=== PATIENT | male | born 1980 | race Caucasian/White ===

== ENCOUNTER 2021-05-02 20:38 | Inpatient (IN) | payer SELFPAY ==
--- NOTE | 2021-05-02 21:02 | ED_ITS ---
HPI - General Adult General: Chief complaint: Psychiatric Symptoms Stated complaint: SI/96 HOUR Time Seen by Provider: 05/02/21 20:58 History of Present Illness: HPI narrative: HPI: [40]yo patient w/ hx of depression BIBA for belligerence and acute psychosis. Patient is following commands but reports visions from God and telling police officers that he is the devil. for On arrival, the patient is AAOx3 and cooperative with my evaluation. No focal complaints of chest pain, shortness of breath, palpitations, N/V, focal GI/ complaints. Patient also endorses suicidal ideations. No complaints of hallucinations. Onset: chronic Duration: ongoing Location: home Severity: severe Review of Systems Narrative: Constitutional: No fever, no chills. HEENT: No vision changes CV: No chest pain, no palpitations PULM: No productive cough, no dyspnea. GI: No abdominal pain, no N/V/D. : No dysuria MSKEL: No muscle pain SKIN: No new rashes, no lesions. NEURO: No headache, no focal weakness. HEME: No visible bruises PSYCH: +psychosis, +SI Physical Exam Narrative: EXAM NARRATIVE: Head: Atraumatic Eyes: PERRL, conjunctiva without injection, eyes tracking ENT: Mucous membrane moist NECK: Supple without lymphadenopathy LUNGS: LCTAB CV: RRR ABDOMEN: Soft, nontender EXTREMITY: Normal ROM SKIN: No rash or erythema NEURO: Awake and alert. No focal weakness PSYCH: Cooperative mood and affect. +mildly agitated Course Vital Signs: Vital signs: Vital Signs Temperature 98.0 F 05/04/21 06:00 Pulse Rate 67 05/04/21 06:00 Respiratory Rate 20 H 05/04/21 06:00 Blood Pressure 117/81 05/04/21 06:00 Pulse Oximetry 95 05/04/21 06:00 MDM - General Adult MDM Narrative: Medical decision making narrative: [40]yo patient w/ no known PMH presenting for acute psychosis. HDS, exam within normal limit Thoughts are linear and organized, +visual hallucinations and auditory hallucinations. +SI Clinically the patient displays no overt toxidrome; they are well appearing, with low suspicion for toxic ingestion given history and exam. Symptoms unlikely 2/2 anemia, hypothyroidism, infection, or ICH. Workup: CBC, CMP, Lipase, salicylate/tylenol, UDS Lab findings: wnl, +amphetamine in urine [10:06] On reassessment, labs and workup wnl. Patient is hemodynamically stable with no acute medical complaints. Case discussed with psychiatric provider Dr. Lovelace at [facility] psych inpatient with recommendation for admission Disposition: Psych Lab Data: Labs: Lab Results 05/02/21 05/02/21 05/02/21 Range/Units 21:24 21:24 21:37 WBC 11.2 H (4.0-10.0) 10^3/ uL RBC 5.47 H (4.1-5.3) 10^6/u L Hgb 15.8 (11.7-16.6) g/dL Hct 46.6 (42.0-52.0) % MCV 85.2 (80-94) fl MCH 28.9 (28.0-34.0) pg MCHC 33.9 (30.0-36.0) g/dL RDW 12.9 (12.1-15.1) % Plt Count 297 (130-400) 10^3/c mm MPV 10.2 (7.4-10.4) fL Neut % (Auto) 54.4 % Lymph % (Auto) 37.2 % Bath % (Auto) 5.1 % Eos % (Auto) 1.9 % Baso % (Auto) 1.0 % Neut # (Auto) 6.08 (1.8-7.7) 10^3/u L Lymph # (Auto) 4.2 (0.8-4.8) 10^3/u L Bath # (Auto) 0.6 (0.2-0.9) 10^3/u L Eos # (Auto) 0.2 (0.0-0.8) 10^3/u L Baso # (Auto) 0.1 (0.0-0.1) 10^3/u L Nucleated RBC % (a uto) 0 % Nucleated RBCs # 0.0 /100WBC Sodium 138 (136-145) mmol/L Potassium 3.8 (3.5-5.1) mmol/L Chloride 101 (98-107) mmol/L Carbon Dioxide 24 (22-29) mmol/L Anion Gap 16.8 (5-19) BUN 14 (6-20) mg/dL Creatinine 0.8 (0.7-1.2) mg/dL GFR Calculation 107.6 (90-130) mL/min Glucose 95 (65-115) mg/dL Calculated Osmolal ity 286 (285-295) mOsm/k g Calcium 9.4 (8.5-10.5) mg/dL Salicylates 1.1 L (3-10) mg/dL Urine Opiates Scre en Negative (Negative) ng/mL Acetaminophen < 5.0 L (10-30) ug/mL Ur Barbiturates Sc reen Negative (Negative) ng/mL Ur Phencyclidine S crn Negative (Negative) ng/mL Ur Amphetamines Sc reen Negative (Negative) ng/mL U Benzodiazepines Scrn Negative (Negative) ng/mL Urine Cocaine Scre en Negative (Negative) ng/mL U Marijuana (THC) Screen Negative (Negative) ng/mL Discharge Plan Discharge Patient Disposition: Admitted As Inpatient Admit Provider: Santiago Lovelace Clinical Impression: Psychosis, Suicide ideation Condition: Stable 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
[2021-05-02 21:07] VITALS: BMI 22.3
[2021-05-02 21:32] LABS: Basophils # 0.1 10^3/uL (0.0-0.1); Eosinophils # 0.2 10^3/uL (0.0-0.8); Eosinophils % 1.9 %; Hematocrit 46.6 % (42.0-52.0); Hemoglobin 15.8 g/dL (11.7-16.6); Lymphocytes # 4.2 10^3/uL (0.8-4.8); Lymphocytes % 37.2 %; Mean Corpuscular HGB Conc 33.9 g/dL (30.0-36.0); Mean Corpuscular Hemoglobin 28.9 pg (28.0-34.0); Mean Corpuscular Volume 85.2 fl (80-94); Mean Platelet Volume 10.2 fL (7.4-10.4); Monocytes # 0.6 10^3/uL (0.2-0.9); Monocytes % 5.1 %; Neutrophils # 6.08 10^3/uL (1.8-7.7); Neutrophils % 54.4 %; Nucleated Red Blood Cells % 0 %; Platelet Count 297 10^3/cmm (130-400); Red Blood Count 5.47 10^6/uL (4.1-5.3); Red Cell Distribution Width 12.9 % (12.1-15.1); White Blood Count 11.2 10^3/uL (4.0-10.0)
[2021-05-02 21:41] VITALS: BP 126/64; PULSE 87; RESP 14; TEMP 36.9; O2SAT 99
[2021-05-02 21:49] LABS: Anion Gap 16.8 (5-19); Blood Urea Nitrogen 14 mg/dL (6-20); Calcium 9.4 mg/dL (8.5-10.5); Carbon Dioxide 24 mmol/L (22-29); Chloride 101 mmol/L (98-107); Glomerular Filtration Rate 107.6 mL/min (90-130); Glucose 95 mg/dL (65-115); Osmolality Calculated 286 mOsm/kg (285-295); Potassium 3.8 mmol/L (3.5-5.1); Salicylate 1.1 mg/dL (3-10); Sodium 138 mmol/L (136-145)
[2021-05-02 21:50] LABS: Acetaminophen < 5.0 ug/mL (10-30)
[2021-05-02 22:06] LABS: Amphetamines Screen Urine Negative (Negative); Barbiturates Screen Urine Negative (Negative); Benzodiazepines Screen Urine Negative (Negative); Cocaine Screen Urine Negative (Negative); Opiate Screen Urine Negative (Negative); PCP Screen Urine Negative (Negative); THC Screen Urine Negative (Negative)
[2021-05-03 01:13] VITALS: BP 126/64; BP 149/95; PULSE 71; PULSE 87; RESP 14; RESP 18; TEMP 36.8; TEMP 36.9; O2SAT 98; O2SAT 99
[2021-05-03] MEDS: trazodone 50 mg Tablet PO (01:30)
[2021-05-03] MEDS: hyDROXYzine 25 mg Capsule 50 MG PO (01:30)
--- NOTE | 2021-05-03 01:30 | PC.NURSE ---
pt requesting sleep and anxiety meds. Trazodone 50mg po for sleep and vistaril 50mg po given.
--- NOTE | 2021-05-03 02:15 | PC.NURSE ---
pt resting with both eyes closed
[2021-05-03 12:52] VITALS: BP 146/75; PULSE 99; RESP 17; TEMP 36.9; O2SAT 99
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
[2021-05-03] MEDS: haloperidol 5 mg Tablet PO (18:33)
--- NOTE | 2021-05-03 18:33 | PC.NURSE ---
PRN HALDOL 5 MG GIVEN PO PER PT C/O AGITATION. PT VERY UPSET HE HASN'T SPOKEN TO PHYSICIAN YET TODAY, STATED I TAKE HALDOL 10 MG ONCE A DAY, I HAVEN'T HAD IT ALL DAY! PT THREATENING TO NOT BE POLITE ANYMORE. WILL CONT TO MONITOR
[2021-05-03 20:19] VITALS: BP 121/87; PULSE 75; RESP 20; TEMP 37; O2SAT 98
[2021-05-03] MEDS: haloperidol 5 mg Tablet 10 MG PO (21:14)
[2021-05-04 06:00] VITALS: BP 117/81; PULSE 67; RESP 20; TEMP 36.7; O2SAT 95
[2021-05-04] MEDS: haloperidol 5 mg Tablet 10 MG PO (08:47)
[2021-05-04] MEDS: escitalopram 10 mg Tablet PO (12:56)
[2021-05-04] MEDS: nicotine 2 mg Gum BUCCAL (12:56)
[2021-05-04 14:00] VITALS: BP 111/69; PULSE 82; RESP 16; TEMP 36.8; O2SAT 98
--- NOTE | 2021-05-04 16:04 | P.PN_ITS ---
Subjective NPU Subjective: Interval history: Stanley presents today not having had his Lexapro so we corrected that. He reports that overall not being out on his own feeling unsafe has helped but he is still feeling depression and hoping that the medication will make a difference. He reports he is eating okay and sleep is still difficult. He was very appreciative of the assistance he got thus far. Staff denied any significant issues. Mental Status Exam MSE Comments: This is a well-nourished, well-developed, white male, with hospital scrubs on with adequate grooming, and limited but improving eye contact. No abnormal movements except for psychomotor retardation. Cooperative with exam in mild distress. Speech was decreased rate and volume. Mood described as still depressed; affect congruent. Thought process, organized. Thought content: patient denied any suicidal or homicidal ideation. Currently he did endorse being paranoid all the time. He reports that he does have auditory and visual hallucinations sometimes. Attention, concentration, and memory appear intact but were not formally tested. He is alert and oriented times three. Insight and judgment are fair, impulse control limited. Vitals/I&O/Wt Last Vital Signs Temp 98.2 F 05/04/21 22:00 Pulse 82 05/04/21 22:00 Resp 16 05/04/21 22:00 BP 111/69 05/04/21 22:00 Pulse Ox 98 05/04/21 22:00 Data NPU : 05/02/21 21:24 05/02/21 21:24 A&P Additional A&P Information (1) Psychosis: (2) Schizoaffective disorder, depressive type: (3) Suicidal thoughts: Additional A&P Information This is a 40-year-old, white male, with a long history of addiction and mental health challenges, who presents with ongoing paranoia, genetic loading for mental health and addiction issues with a family history of suicidality, who identifies significant depression and is open to medication trail and connection with treatment providers. RECOMMENDATION AND PLAN: 1. Continue current medication except: Initiate Lexapro 10 mg po qam. 2. Encourage individual, group, and milieu therapy. 3. Continue q-15 minute checks for safety. Involuntary Hold Information 96 Hour Hold: 96 Hour Involuntary Admission: Yes 96 Hour Hold Ending Date: 05/07/21 96 Hour Hold Ending Time: 00:01 Attestations NPU Medical Necessity Statement*: Inpatient hospitalization is medically necessary and the clinically appropriate intervention, at this time. We will monitor medications and make changes as indicated. Likely length of stay is 2-4 days. 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
[2021-05-04] MEDS: trazodone 50 mg Tablet PO (21:53)
[2021-05-04] MEDS: hyDROXYzine 25 mg Capsule 50 MG PO (21:53)
[2021-05-04 22:00] VITALS: BP 111/69; PULSE 82; RESP 16; TEMP 36.8; O2SAT 98
--- NOTE | 2021-05-04 22:00 | PC.NURSE ---
PT REQUESTED SLEEP AND ANXIETY MEDS, TRAZODONE 50MG PO FOR SLEEP AND VISTARIL 50MG PO FOR ANXIETY GIVEN.
[2021-05-05 06:00] VITALS: BP 111/69; PULSE 82; RESP 16; TEMP 36.8; O2SAT 98
[2021-05-05] MEDS: escitalopram 10 mg Tablet PO (09:05)
[2021-05-05] MEDS: haloperidol 5 mg Tablet 10 MG PO (09:05)
[2021-05-05 13:50] VITALS: BP 133/81; PULSE 73; RESP 20; TEMP 36.6; O2SAT 97
--- NOTE | 2021-05-05 18:15 | P.PN_ITS ---
Subjective NPU Subjective: Interval history: Patient presents today reporting that he is doing better in his estimation with the Lexapro on board. He reports he is having a decrease in his depression and he is feeling more energetic and more positive. We discussed continuing to observe him on the medication and to identify possible discharge options. He reported that the darkness he had desc ribed before is certainly moving away. We discussed his a 96-hour hold and the likelihood of discharge in the next 48 hours. Mental Status Exam MSE Comments: This is a well-nourished, well-developed, white male, with hospital scrubs on with adequate grooming and improving eye contact. No abnormal movements except for a somewhat stiff and robotic motion. Cooperative with exam in mild distress. Speech was more normal rate and volume. Mood described as feeling better; affect congruent. Thought process, organized. Thought content: patient denied any suicidal or homicidal ideation. Currently he did endorse being paranoid all the time. He reports that he does have auditory and visual hallucinations sometimes. Attention, concentration, and memory appear intact but were not formally tested. He is alert and oriented times three. Insight and judgment are fair, impulse control limited. Vitals/I&O/Wt Last Vital Signs Temp 98.4 F 05/05/21 20:50 Pulse 75 05/05/21 20:50 Resp 19 H 05/05/21 20:50 BP 132/85 05/05/21 20:50 Pulse Ox 98 05/05/21 20:50 Data NPU : 05/02/21 21:24 05/02/21 21:24 A&P Additional A&P Information (1) Psychosis: (2) Schizoaffective disorder, depressive type: (3) Suicidal thoughts: Additional A&P Information This is a 40-year-old, white male, with a long history of addiction and mental health challenges, who presents with ongoing paranoia, genetic loading for mental health and addiction issues with a family history of suicidality, who identifies significant depression and is open to medication trail and connection with treatment providers. RECOMMENDATION AND PLAN: 1. Continue current medication except: Initiate Lexapro 10 mg po qam. 2. Encourage individual, group, and milieu therapy. 3. Continue q-15 minute checks for safety. Involuntary Hold Information 96 Hour Hold: 96 Hour Involuntary Admission: Yes 96 Hour Hold Ending Date: 05/07/21 96 Hour Hold Ending Time: 00:01 Attestations NPU Medical Necessity Statement*: Inpatient hospitalization is medically necessary and the clinically appropriate intervention, at this time. We will monitor medications and make changes as indicated. Likely length of stay is 1-3 days. 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
[2021-05-05 20:50] VITALS: BP 132/85; PULSE 75; RESP 19; TEMP 36.9; O2SAT 98
[2021-05-05] MEDS: trazodone 50 mg Tablet PO (21:35)
[2021-05-05] MEDS: hyDROXYzine 25 mg Capsule 50 MG PO (21:35)
[2021-05-06 06:00] VITALS: BP 128/74; PULSE 79; RESP 18; TEMP 37.1; O2SAT 95
[2021-05-06] MEDS: hyDROXYzine 25 mg Capsule 50 MG PO ×2 (06:50→21:40)
[2021-05-06] MEDS: haloperidol 5 mg Tablet 10 MG PO (08:11)
[2021-05-06] MEDS: escitalopram 10 mg Tablet PO (08:11)
--- NOTE | 2021-05-06 12:22 | P.PN_ITS ---
Subjective NPU Subjective: Interval history: Stanley continues to show slow improvement per staff though he has had some significant outbursts especially when speaking to mom. Was problematic because with sister saying he cannot return mom is one of his main options. He reported that whenever he is anything that she can understand him or hear him and that's very frustrating which is why he was yelling earlier. He reports that his depression is improving and that he is working with the treatment team for discharge planning next 48 hours or so. He did sign in voluntarily so is 96-hour hold has ended and he is engaging by choice. Mental Status Exam MSE Comments: This is a well-nourished, well-developed, white male, with hospital scrubs on with adequate grooming and improving eye contact. No abnormal movements except for a somewhat stiff and robotic motion. Cooperative with exam in no acute distress, but he has had moments of extreme distress today. Speech was more normal rate and volume. Mood described as feeling better; affect congruent. Thought process, organized. Thought content: patient denied any suicidal or homicidal ideation. Currently he did endorse being paranoid all the time. He reports that he does have auditory and visual hallucinations sometimes. Attention, concentration, and memory appear intact but were not formally tested. He is alert and oriented times three. Insight and judgment are limited, impulse control limited. Vitals/I&O/Wt Last Vital Signs Temp 98.7 F 05/06/21 06:00 Pulse 79 05/06/21 06:00 Resp 18 05/06/21 06:00 BP 128/74 05/06/21 06:00 Pulse Ox 95 05/06/21 06:00 Data NPU : 05/02/21 21:24 05/02/21 21:24 A&P Additional A&P Information (1) Psychosis: (2) Schizoaffective disorder, depressive type: (3) Suicidal thoughts: Additional A&P Information This is a 40-year-old, white male, with a long history of addiction and mental health challenges, who presents with ongoing paranoia, genetic loading for mental health and addiction issues with a family history of suicidality, who identifies significant depression and is open to medication trail and connection with treatment providers. RECOMMENDATION AND PLAN: 1. Continue current medication except: Initiate Lexapro 10 mg po qam. 2. Encourage individual, group, and milieu therapy. 3. Continue q-15 minute checks for safety. 4. Working with the treatment team for a safe discharge option. Involuntary Hold Information 96 Hour Hold: 96 Hour Involuntary Admission: Yes 96 Hour Hold Ending Date: 05/07/21 96 Hour Hold Ending Time: 00:01 Attestations NPU Medical Necessity Statement*: Inpatient hospitalization is medically necessary and the clinically appropriate intervention, at this time. We will monitor medications and make changes as indicated. Likely length of stay is 1-2 days. 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
[2021-05-06] MEDS: OLANZapine 5 mg ODT PO ×2 (12:48→21:40)
--- NOTE | 2021-05-06 12:49 | PC.NURSE ---
PRN ZYPREXA ZYDIS 5 MG GIVEN PO PER PT C/O EXTREME AGITATION. PT YELLING AND CURSING AFTER PHONE CALL, SLAMMED PHONE ON THE WALL YELLING PROFANITIES FUCK YOU THEN! FUCK YOU! PT THEN STORMED OFF DOWN THE HALLWAY TO HIS ROOM, CONTINUED TO CUSS. IN ROOM SAYING WELL I HOPE I JUST HAVE A HEART ATTACK THEN! PT STATED TO MANAGING DIRECTOR [place] HE WAS ON THE PHONE WITH HIS MOM BUT HE FELT LIKE SHE WAS PROBABLY DRINKING AND HE DIDN'T FEEL LIKE SHE WAS LISTENING TO HIM. OFFERED PRN MEDICATION & PT AGREEABLE TO TAKE. WILL CONT TO MONITOR FOR DESIRED MED EFFECTIVENESS.
[2021-05-06 13:26] VITALS: BP 135/87; PULSE 76; RESP 17; TEMP 36.9; O2SAT 97
[2021-05-06] MEDS: trazodone 50 mg Tablet PO (21:40)
[2021-05-06 22:00] VITALS: BP 132/75; PULSE 74; RESP 16; TEMP 36.9; O2SAT 99
--- NOTE | 2021-05-06 23:57 | PC.NURSE ---
PRN [id number] Administered Vistaril 50mg, Trazodone 50mg, Zydis 50mg, for anxiety and a sleep aid. Will continue to monitor pt.
[2021-05-07 06:00] VITALS: BP 137/86; PULSE 68; RESP 18; TEMP 36.7; O2SAT 97
[2021-05-07] MEDS: nicotine 2 mg Gum BUCCAL ×2 (06:37→23:03)
[2021-05-07] MEDS: escitalopram 10 mg Tablet PO (09:49)
[2021-05-07] MEDS: haloperidol 5 mg Tablet 10 MG PO (09:49)
[2021-05-07] MEDS: hyDROXYzine 25 mg Capsule 50 MG PO ×2 (12:29→22:44)
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
[2021-05-07 14:00] VITALS: BP 137/86; PULSE 68; RESP 18; TEMP 36.7; O2SAT 97
--- NOTE | 2021-05-07 15:53 | P.PN_ITS ---
Subjective NPU Subjective: Interval history: Patient presents today on the verge of being discharged but was asking when the discharge would occur and staff informed him that the discharge order was not in yet and he started having intrusive thoughts and paranoia that he was being like to and he lost control. It ended up in a 45-minute yelling session that left him drenched and exhausted. He had other many episodes after that we discussed the fact that in his current state discharge was not acceptable plan. Mental Status Exam MSE Comments: This is a well-nourished, well-developed, white male, with hospital scrubs on with adequate grooming and improving eye contact. No abnormal movements except for open somewhat robotic movement and extreme psychomotor agitation. Uncooperative with exam in severe distress at times. Speech was increased rate and volume. Mood described as upset; affect congruent. Thought process, organized. Thought content: patient endorsed suicidal and homicidal ideation during his rank, there were no delusions reported but clear hyperreligious purgatory delusions existed. He reports that he does have auditory and visual hallucinations sometimes. Attention, concentration, and memory appear impaired but were not formally tested. He is alert and oriented times three. Insight and judgment are impaired, impulse control impaired. Vitals/I&O/Wt Last Vital Signs Temp 98.0 F 05/07/21 14:00 Pulse 68 05/07/21 14:00 Resp 18 05/07/21 14:00 BP 137/86 05/07/21 14:00 Pulse Ox 97 05/07/21 14:00 Data NPU : 05/02/21 21:24 05/02/21 21:24 A&P Additional A&P Information (1) Psychosis: (2) Schizoaffective disorder, depressive type: (3) Suicidal thoughts: Additional A&P Information This is a 40-year-old, white male, with a long history of addiction and mental health challenges, who presents with ongoing paranoia, genetic loading for mental health and addiction issues with a family history of suicidality, who identifies significant depression and is open to medication trail and connection with treatment providers. RECOMMENDATION AND PLAN: 1. Continue current medications. 2. Encourage individual, group, and milieu therapy. 3. Continue q-15 minute checks for safety. 4. Working with the treatment team for a safe discharge option. Involuntary Hold Information 96 Hour Hold: 96 Hour Involuntary Admission: Yes 96 Hour Hold Ending Date: 05/07/21 96 Hour Hold Ending Time: 00:01 Attestations NPU Medical Necessity Statement*: Inpatient hospitalization is medically necessary and the clinically appropriate intervention, at this time. We will monitor medications and make changes as indicated. Likely length of stay is 3-5 days. 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
[2021-05-07] MEDS: OLANZapine 5 mg ODT PO (16:02)
[2021-05-07] MEDS: nicotine 21 mg Patch 1 PATCH TRANSDERMA (16:16)
[2021-05-07 20:20] VITALS: BP 127/80; PULSE 66; RESP 17; TEMP 36.7; O2SAT 97
[2021-05-07] MEDS: trazodone 50 mg Tablet PO (22:44)
--- NOTE | 2021-05-08 02:50 | PC.NURSE ---
PRN 2244 Vistaril 50mg administered for anxiety, 50mg Trazodone administered for sleeping aid. Will continue to monitor pt.
[2021-05-08 05:57] VITALS: BP 125/76; PULSE 66; RESP 19; TEMP 36.9; O2SAT 96
[2021-05-08] MEDS: escitalopram 10 mg Tablet PO (07:45)
[2021-05-08] MEDS: haloperidol 5 mg Tablet 10 MG PO (07:45)
--- NOTE | 2021-05-08 08:00 | PC.NURSE ---
DISRUPTIVE BEHAVIOR PT YELLING PROFANITIES AT DESK, THREATENING STAFF AND SECURITY, CALLING SECURITY A LITTLE BITCH PT HYPER CONFUCIANISM, STATED HE ONLY WANTS TO TALK TO GOD! WHEN IS GOD COMING TODAY? PATIENT THREATENING TO HANG HIMSELF IF HE GETS DISCHARGED TODAY. PT THEN GOT ON THE PHONE, DIALED 911, STAFF TURNED THE PHONE OFF & ATTEMPTS TO EDUCATE PT THAT HIS BEHAVIOR IS INAPPROPRIATE FOR HOSPITAL SETTING. PT CONT TO BE DISRUPTIVE, YELLING PROFANITIES AT THE TOP OF HIS LUNGS AT THE NURSES STATION.
--- NOTE | 2021-05-08 08:35 | PC.NURSE ---
PT BEHAVIOR; CLIENT HAS BEEN HAVING VERBAL OUTBURST DIRECTING VERBAL THREATS TOWARDS STAFF MEMBERS AND SECURITY. CLIENT CONTINUES TO ESCALATE HIS VERBAL THREATS. CLIENT HAS BEEN MEDICATED WITH 10MG OF HALDOL FOR AGITATION. STAFF WILL CONTINUE TO MONITOR.
[2021-05-08] MEDS: nicotine 2 mg Gum BUCCAL ×2 (09:22→17:17)
--- NOTE | 2021-05-08 10:07 | PM.NPN ---
Subjective NPU Subjective: Interval history: Patient presented today reporting that he doesn't want to leave facetiously likely. asking questions like Do you have the Devil's number? and asking about dying and going to hell. We discussed the lexapro and considering a change to maybe zoloft on monday if he is not getting better. Mental Status Exam MSE Comments: This is a well-nourished, well-developed, white male, with hospital scrubs on with adequate grooming and improving eye contact. No abnormal movements except for open somewhat robotic movement and occasionally extreme psychomotor agitation. intermittently cooperative with exam in severe distress at times. Speech was increased rate and volume. Mood described as fine; affect irritable. Thought process, organized. Thought content: patient endorsed suicidal and homicidal ideation during his rants, there were no delusions reported but clear hyperreligious purgatory delusions existed. He reports that he does have auditory and visual hallucinations sometimes. Attention, concentration, and memory appear impaired but were not formally tested. He is alert and oriented times three. Insight and judgment are impaired, impulse control impaired. Vitals/I&O/Wt Last Vital Signs Temp 98.4 F 05/08/21 05:57 Pulse 66 05/08/21 05:57 Resp 19 H 05/08/21 05:57 BP 125/76 05/08/21 05:57 Pulse Ox 96 05/08/21 05:57 Data NPU : 05/02/21 21:24 05/02/21 21:24 A&P Additional A&P Information (1) Psychosis: (2) Schizoaffective disorder, depressive type: (3) Suicidal thoughts: Additional A&P Information This is a 40-year-old, white male, with a long history of addiction and mental health challenges, who presents with ongoing paranoia, genetic loading for mental health and addiction issues with a family history of suicidality, who identifies significant depression and is open to medication trail and connection with treatment providers. RECOMMENDATION AND PLAN: 1. Continue current medications. 2. Encourage individual, group, and milieu therapy. 3. Continue q-15 minute checks for safety. 4. Working with the treatment team for a safe discharge option. Involuntary Hold Information 96 Hour Hold: 96 Hour Involuntary Admission: Yes 96 Hour Hold Ending Date: 05/07/21 96 Hour Hold Ending Time: 00:01 Attestations NPU Medical Necessity Statement*: Inpatient hospitalization is medically necessary and the clinically appropriate intervention, at this time. We will monitor medications and make changes as indicated. Likely length of stay is 2-4 days. 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
[2021-05-08 14:00] VITALS: BP 120/70; PULSE 73; RESP 16; TEMP 36.6; O2SAT 98
[2021-05-08] MEDS: OLANZapine 5 mg ODT PO (19:34)
[2021-05-08] MEDS: trazodone 50 mg Tablet PO (21:27)
[2021-05-08] MEDS: hyDROXYzine 25 mg Capsule 50 MG PO (21:27)
[2021-05-08 22:00] VITALS: BP 135/79; PULSE 83; RESP 18; TEMP 36.8; O2SAT 98
[2021-05-09 05:22] VITALS: BMI 22.3
[2021-05-09 06:00] VITALS: BP 120/76; PULSE 72; RESP 16; TEMP 36.9; O2SAT 98
[2021-05-09] MEDS: haloperidol 5 mg Tablet 10 MG PO (08:31)
[2021-05-09] MEDS: nicotine 21 mg Patch 1 PATCH TRANSDERMA (08:31)
[2021-05-09] MEDS: escitalopram 10 mg Tablet PO (08:31)
[2021-05-09 12:56] VITALS: BP 152/93; PULSE 99; RESP 17; TEMP 36.7; O2SAT 96
--- NOTE | 2021-05-09 13:45 | P.PN_ITS ---
Subjective NPU Subjective: Interval history: Patient presents today reporting that he is feeling better than he was yesterday. We continued to discuss whether we should stay the course with the Lexapro versus consider Zoloft and at this point he still reporting slight improvement. I inquired about him yelling and saying he was God and what that meant. He reports that he does not he is God but God is speaking through him. He reports that he got his upset with everyone for other treating earth and not taking care of that because cannot just make another earth. Mental Status Exam MSE Comments: This is a well-nourished, well-developed, white male, with hospital scrubs on with adequate grooming and improving eye contact. No abnormal movements except for occasional somewhat robotic movement. Cooperative with exam in no acute distress. Speech was more normal rate and volume. Mood described as fine; affect irritable. Thought process, organized. Thought content: patient denied suicidal and homicidal ideation , there were no delusions reported but clear hyperreligious purgatory delusions existed. He reports that he does have auditory and visual hallucinations sometimes. Attention, concentration, and memory appear impaired but were not formally tested. He is alert and oriented times three. Insight and judgment are impaired, impulse control limited. Vitals/I&O/Wt Last Vital Signs Temp 98.1 F 05/09/21 12:56 Pulse 99 05/09/21 12:56 Resp 17 05/09/21 12:56 BP 152/93 05/09/21 12:56 Pulse Ox 96 05/09/21 12:56 Weight last 48 hrs Weight 72.575 kg Data NPU : 05/02/21 21:24 05/02/21 21:24 A&P Additional A&P Information (1) Psychosis: (2) Schizoaffective disorder, depressive type: (3) Suicidal thoughts: Additional A&P Information This is a 40-year-old, white male, with a long history of addiction and mental health challenges, who presents with ongoing paranoia, genetic loading for mental health and addiction issues with a family history of suicidality, who identifies significant depression and is open to medication trail and connection with treatment providers. RECOMMENDATION AND PLAN: 1. Continue current medications. 2. Encourage individual, group, and milieu therapy. 3. Continue q-15 minute checks for safety. 4. Working with the treatment team for a safe discharge option. Involuntary Hold Information 96 Hour Hold: 96 Hour Involuntary Admission: Yes 96 Hour Hold Ending Date: 05/07/21 96 Hour Hold Ending Time: 00:01 Attestations NPU Medical Necessity Statement*: Inpatient hospitalization is medically necessary and the clinically appropriate intervention, at this time. We will monitor medications and make changes as indicated. Likely length of stay is 1-3 days. 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
[2021-05-09 21:03] VITALS: BP 152/93; PULSE 81; RESP 17; TEMP 36.7; O2SAT 99
[2021-05-10 06:00] VITALS: BP 123/81; PULSE 78; RESP 19; TEMP 36.6; O2SAT 99
[2021-05-10] MEDS: escitalopram 10 mg Tablet PO (08:24)
[2021-05-10] MEDS: haloperidol 5 mg Tablet 10 MG PO (08:24)
[2021-05-10] MEDS: hyDROXYzine 25 mg Capsule 50 MG PO (10:05)
--- NOTE | 2021-05-10 10:05 | PC.NURSE ---
PRN VISTARIL 50 MG GIVEN PO PER PT REQUEST OF ANXIETY MED
[2021-05-10] MEDS: nicotine 2 mg Gum BUCCAL (10:52)
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
[2021-05-10 13:33] VITALS: BP 123/81; PULSE 78; RESP 19; TEMP 36.6; O2SAT 99
== END 2021-05-10 14:14 | disposition home or self-care (01) | DRG 885 ==
LOC: ER 23:09 → NP 05-03 07:27
PROVIDERS: Admitting Provider Psychiatry & Neurology Psychiatry; Emergency Provider Emergency Medicine; Visit Provider Psychiatry & Neurology Psychiatry
DX: F25.1 Schizoaffective disorder, depressive type (principal); R45.851 Suicidal ideations; Z59.0 Homelessness
CPT/HCPCS: 80048; 80306; 80307; 85025; 99285